=== PATIENT | female | born 1970 | race Caucasian/White ===

== ENCOUNTER 2020-11-06 15:46 | Inpatient (IN) | payer OTHER ==
[2020-11-06 20:32] VITALS: BMI 22.8
[2020-11-06] MEDS ORDERED: guaiFENesin 200 MG/10 ML 10 ML UNIT-DOSE CUPS PO PRN (22:23)
[2020-11-06] MEDS ORDERED: P-EPHED 60MG/TRIPROLIDI 2.5MG TABLET PO PRN (22:23)
[2020-11-06] MEDS ORDERED: ACETAMINOPHEN 325 MG TABLET (FP) PO PRN (22:23)
[2020-11-06] MEDS ORDERED: MAGNESIUM HYDROX 2400MG/30ML ORAL SUSPENSION 30 ML CUP PO PRN (22:23)
[2020-11-06] MEDS ORDERED: MAGNESIUM CITRATE 300 ML BOTTLE PO PRN (22:23)
[2020-11-06] MEDS ORDERED: LOPERAMIDE HCL 2 MG CAPSULE PO PRN (22:23)
[2020-11-06] MEDS ORDERED: NICOTINE 10 MG CARTRIDGE (INHALER) IH PRN (22:23)
[2020-11-06] MEDS ORDERED: MAG HYDROX/AL HYDROX/SIMETH 30 ML UNIT-DOSE CUP PO PRN (22:23)
[2020-11-06] MEDS ORDERED: hydrOXYzine PAMOATE 25 MG CAPSULE (FP) PO PRN (22:23)
[2020-11-07] MEDS ORDERED: TUBERCULIN PPD 5 TU/0.1ML VIAL ID ONE ×2 (01:48→02:10)
[2020-11-07] MEDS: IBUPROFEN 400 MG TABLET (FP) PO PRN ×2 (02:03→10:17)
[2020-11-07] MEDS: MELATONIN 5 MG TABLETS PO SCH ×2 (02:25→22:25)
[2020-11-07] MEDS: metFORMIN HCL 500 MG TABLET (FP) PO SCH ×2 (06:24→16:57)
[2020-11-07] MEDS ORDERED: cloNIDine HCL 0.1 MG TABLET PO PRN (06:56)
[2020-11-07] MEDS: hydrOXYzine PAMOATE 25 MG CAPSULE (FP) PO PRN (07:08)
[2020-11-07] MEDS: DIVALPROEX SODIUM 500 MG TABLET E.C. PO SCH ×2 (10:13→22:25)
[2020-11-07] MEDS: ASPIRIN 81 MG CHEWABLE TABLETS PO SCH (10:13)
[2020-11-07] MEDS: PRENATAL VITAMINS W/ FOLIC ACID TABLET (FP) PO SCH (10:13)
[2020-11-07] MEDS: NICOTINE 21 MG/24 HOURS TOPICAL PATCH TD SCH (10:18)
[2020-11-07 10:56] LABS: HEMATOCRIT 35.5 % (32.4-45.2); MCH 29.2 pg (25.7-33.7); MCHC 33.7 g/dl (32.0-36.0); MEAN CELL VOLUME 86.5 fl (80-96); MEAN PLT VOLUME 8.6 fl (7.5-11.1); PLATELET COUNT 286 10^3/uL (134-434); RDW 13.6 % (11.6-15.6); WHITE BLOOD COUNT 25.8 K/mm3 (4.0-10.0)
[2020-11-07 11:05] LABS: CALCIUM 9.6 mg/dL (8.5-10.1)
[2020-11-07 11:06] LABS: ALBUMIN 3.5 g/dl (3.4-5.0); BLOOD UREA NITROGEN 13.1 mg/dL (7-18)
[2020-11-07 11:09] LABS: CREATININE 0.6 mg/dL (0.55-1.3)
[2020-11-07 11:11] LABS: BILIRUBIN,TOTAL 0.5 mg/dL (0.2-1); TOT PROT 6.8 g/dl (6.4-8.2)
[2020-11-07 11:30] LABS: SYPHILIS W/ RPR CONF NON-REACTIVE (NONREACTIVE)
[2020-11-07 17:32] LABS: URINE APPEARANCE CLOUDY; URINE BILIRUBIN NEGATIVE (NEGATIVE); URINE COLOR YELLOW; URINE GLUCOSE (UA) NEGATIVE (NEGATIVE); URINE KETONE NEGATIVE (NEGATIVE); URINE LEUK ESTERASE NEGATIVE (NEGATIVE); URINE NITRITE NEGATIVE (NEGATIVE); URINE PROTEIN NEGATIVE (NEGATIVE); URINE UROBILINOGEN 0.2 mg/dL (0.2-1.0)
[2020-11-07] MEDS: ALBUTEROL SO4 HFA INHALER IH PRN (19:53)
[2020-11-07] MEDS ORDERED: PT OWN MED DRAWER 7, Y5N ONE (20:53)
[2020-11-07] MEDS ORDERED: ALBUTEROL SO4 0.083% IH SOL 2.5 MG/3 ML VIAL.NEB. NEB ONE (21:06)
[2020-11-07] MEDS ORDERED: ALBUTEROL SO4 2.5/IPRATROPIUM 0.5 INH SOL 3 ML VIAL.NEB. NEB ONE (21:26)
[2020-11-07] MEDS: ATORVASTATIN CA 40 MG TABLET (FP) PO SCH (22:25)
[2020-11-07] MEDS: THIAMINE HCL 100 MG TABLET (FP) PO SCH (22:25)
[2020-11-07] MEDS: levETIRAcetam 500 MG TABLET (FP) PO SCH (22:25)
[2020-11-08] MEDS: IBUPROFEN 400 MG TABLET (FP) PO PRN ×2 (02:36→10:51)
[2020-11-08] MEDS: hydrOXYzine PAMOATE 25 MG CAPSULE (FP) PO PRN ×2 (06:37→16:56)
[2020-11-08] MEDS: metFORMIN HCL 500 MG TABLET (FP) PO SCH ×2 (06:38→16:55)
[2020-11-08] MEDS: ALBUTEROL SO4 HFA INHALER IH PRN ×2 (09:36→21:23)
[2020-11-08] MEDS ORDERED: VENLAFAXINE HCL 150 MG E.R. CAPSULE PO SCH (10:00)
[2020-11-08] MEDS: PRENATAL VITAMINS W/ FOLIC ACID TABLET (FP) PO SCH (10:48)
[2020-11-08] MEDS: DIVALPROEX SODIUM 500 MG TABLET E.C. PO SCH ×2 (10:48→21:22)
[2020-11-08] MEDS: NICOTINE 21 MG/24 HOURS TOPICAL PATCH TD SCH (10:48)
[2020-11-08] MEDS: ASPIRIN 81 MG CHEWABLE TABLETS PO SCH (10:48)
[2020-11-08] MEDS ORDERED: MODERNA COVID-19 VACC,MRNA/PF 100 MCG/0.5 ML IM ONE (11:00)
[2020-11-08] MEDS ORDERED: levETIRAcetam 500 MG TABLET (FP) PO ONE (11:15)
[2020-11-08] MEDS: TIOTROPIUM BROMIDE 2.5 MCG (SPIRIVA) RESPIMAT INHALER IH SCH (12:14)
[2020-11-08] MEDS: levETIRAcetam 500 MG TABLET (FP) PO SCH (21:21)
[2020-11-08] MEDS: ATORVASTATIN CA 40 MG TABLET (FP) PO SCH (21:21)
[2020-11-08] MEDS: QUEtiapine FUMARATE 100 MG TABLET (FP) PO SCH (21:21)
[2020-11-08] MEDS: THIAMINE HCL 100 MG TABLET (FP) PO SCH (21:21)
[2020-11-08] MEDS: traZODone HCL 100 MG TABLET (FP) PO SCH (21:22)
[2020-11-09] MEDS: metFORMIN HCL 500 MG TABLET (FP) PO SCH ×2 (06:50→16:40)
[2020-11-09] MEDS: ALBUTEROL SO4 HFA INHALER IH PRN ×4 (06:50→21:13)
[2020-11-09] MEDS: hydrOXYzine PAMOATE 25 MG CAPSULE (FP) PO PRN ×3 (06:53→18:06)
[2020-11-09] MEDS: IBUPROFEN 400 MG TABLET (FP) PO PRN (06:53)
[2020-11-09] MEDS: levETIRAcetam 500 MG TABLET (FP) PO SCH ×2 (10:57→21:15)
[2020-11-09] MEDS: DIVALPROEX SODIUM 500 MG TABLET E.C. PO SCH ×2 (10:57→21:15)
[2020-11-09] MEDS: ASPIRIN 81 MG CHEWABLE TABLETS PO SCH (10:57)
[2020-11-09] MEDS: PRENATAL VITAMINS W/ FOLIC ACID TABLET (FP) PO SCH (10:57)
[2020-11-09] MEDS: NICOTINE 21 MG/24 HOURS TOPICAL PATCH TD SCH (10:58)
[2020-11-09] MEDS: TIOTROPIUM BROMIDE 2.5 MCG (SPIRIVA) RESPIMAT INHALER IH SCH (10:58)
[2020-11-09] MEDS: traZODone HCL 100 MG TABLET (FP) PO SCH (21:15)
[2020-11-09] MEDS: ATORVASTATIN CA 40 MG TABLET (FP) PO SCH (21:16)
[2020-11-09] MEDS: THIAMINE HCL 100 MG TABLET (FP) PO SCH (21:16)
[2020-11-09] MEDS: QUEtiapine FUMARATE 100 MG TABLET (FP) PO SCH (21:16)
[2020-11-10] MEDS: hydrOXYzine PAMOATE 25 MG CAPSULE (FP) PO PRN ×3 (02:05→19:19)
[2020-11-10] MEDS: metFORMIN HCL 500 MG TABLET (FP) PO SCH ×2 (06:34→16:40)
[2020-11-10 07:17] VITALS: TEMP 97.3
[2020-11-10] MEDS: levETIRAcetam 500 MG TABLET (FP) PO SCH ×2 (10:37→23:53)
[2020-11-10] MEDS: ASPIRIN 81 MG CHEWABLE TABLETS PO SCH (10:37)
[2020-11-10] MEDS: DIVALPROEX SODIUM 500 MG TABLET E.C. PO SCH ×2 (10:37→23:53)
[2020-11-10] MEDS: PRENATAL VITAMINS W/ FOLIC ACID TABLET (FP) PO SCH (10:37)
[2020-11-10] MEDS: NICOTINE 21 MG/24 HOURS TOPICAL PATCH TD SCH (10:38)
[2020-11-10] MEDS: TIOTROPIUM BROMIDE 2.5 MCG (SPIRIVA) RESPIMAT INHALER IH SCH (10:38)
[2020-11-10] MEDS: ALBUTEROL SO4 HFA INHALER IH PRN ×2 (10:39→16:31)
[2020-11-10 18:18] VITALS: BP 141/86; PULSE 93
[2020-11-10] MEDS: QUEtiapine FUMARATE 100 MG TABLET (FP) PO SCH (23:53)
[2020-11-10] MEDS: traZODone HCL 100 MG TABLET (FP) PO SCH (23:53)
[2020-11-10] MEDS: ATORVASTATIN CA 40 MG TABLET (FP) PO SCH (23:53)
[2020-11-10] MEDS: THIAMINE HCL 100 MG TABLET (FP) PO SCH (23:54)
[2020-11-11] MEDS: metFORMIN HCL 500 MG TABLET (FP) PO SCH (07:24)
== END 2020-11-11 07:15 | disposition short-term general hospital (02) | DRG 772 ==
LOC: YASAS 15:46 → Y5N 23:38
PROVIDERS: ADMIT Allergy & Immunology; ATTEND Allergy & Immunology
PROC: HZ42ZZZ Group Counseling for Substance Abuse Treatment, Cognitive-Behavioral (ICD-10-PCS; principal; 2020-11-06)
DX: F10.20 Alcohol dependence, uncomplicated (principal); F14.20 Cocaine dependence, uncomplicated; F12.20 Cannabis dependence, uncomplicated; F17.210 Nicotine dependence, cigarettes, uncomplicated; F25.9 Schizoaffective disorder, unspecified; J44.1 Chronic obstructive pulmonary disease with (acute) exacerbation; E78.5 Hyperlipidemia, unspecified; E11.9 Type 2 diabetes mellitus without complications; G40.909 Epilepsy, unspecified, not intractable, without status epilepticus; H54.62 Unqualified visual loss, left eye, normal vision right eye; M54.5 Low back pain; G89.29 Other chronic pain; R06.02 Shortness of breath; Z79.84 Long term (current) use of oral hypoglycemic drugs; Z87.39 Personal history of other diseases of the musculoskeletal system and connective tissue; Z56.0 Unemployment, unspecified
CPT/HCPCS: 0011A; 36415; 80053; 81003; 82962; 85027; 86780; 86803; 91301; 93005; 93010; 94640; C9803; J0735; U0003; U0005

== ENCOUNTER 2020-11-10 20:03 | Inpatient (IN) | payer OTHER ==
[2020-11-10] MEDS ORDERED: ALBUTEROL SO4 2.5/IPRATROPIUM 0.5 INH SOL 3 ML VIAL.NEB. NEB SCH (21:00)
[2020-11-10] MEDS ORDERED: PIPERACILLIN/TAZOB 3.375 GM 3.375 GM in DEXTROSE 5%-WATER - 50 ML IVPB ONE (21:36)
[2020-11-10] MEDS ORDERED: PIPERACILLIN/TAZOB 3.375 GM 3.375 GM/50 ML BAG IVPB ONE (21:37)
[2020-11-10 21:57] LABS: HEMATOCRIT 35.4 % (32.4-45.2); MCH 29.9 pg (25.7-33.7); MCHC 33.9 g/dl (32.0-36.0); MEAN CELL VOLUME 88.1 fl (80-96); PLATELET COUNT 348 10^3/uL (134-434); RBC 4.02 M/mm3 (3.60-5.2); RDW 13.7 % (11.6-15.6); WHITE BLOOD COUNT 10.6 K/mm3 (4.0-10.0)
[2020-11-10 22:02] LABS: URINE APPEARANCE Error; URINE BILIRUBIN NEGATIVE (NEGATIVE); URINE COLOR YELLOW; URINE GLUCOSE (UA) NEGATIVE (NEGATIVE); URINE KETONE NEGATIVE (NEGATIVE); URINE LEUK ESTERASE NEGATIVE (NEGATIVE); URINE NITRITE NEGATIVE (NEGATIVE); URINE PROTEIN NEGATIVE (NEGATIVE); URINE UROBILINOGEN 0.2 mg/dL (0.2-1.0)
[2020-11-10 22:59] LABS: CHLORIDE 104 mmol/L (98-107); SODIUM 140 mmol/L (136-145)
[2020-11-10 23:02] LABS: ALBUMIN 3.4 g/dl (3.4-5.0); ANION GAP 5 MMOL/L (8-16); BLOOD UREA NITROGEN 9.1 mg/dL (7-18); CALCIUM 9.6 mg/dL (8.5-10.1); CO2 31 mmol/L (21-32); MAGNESIUM 1.7 mg/dL (1.8-2.4)
[2020-11-10 23:03] LABS: GLUCOSE,RANDOM 100 mg/dL (74-106)
[2020-11-10 23:05] LABS: CREATININE 0.5 mg/dL (0.55-1.3); SGOT/AST 16 U/L (15-37); SGPT/ALT 30 U/L (13-61)
[2020-11-10 23:07] LABS: BILIRUBIN,TOTAL < 0.1 mg/dL (0.2-1); TOT PROT 6.9 g/dl (6.4-8.2)
[2020-11-10 23:08] LABS: ALK PHOS 103 U/L (45-117)
[2020-11-10] MEDS ORDERED: MAGNESIUM SULF 50% (8.12 MEQ/2 ML-1 GM VIAL) IVPB ONE (23:41)
[2020-11-11] MEDS ORDERED: MAGNESIUM SULFATE IN WATER 2 GM/50 ML IVPB IVPB ONE (00:50)
[2020-11-11] MEDS ORDERED: LORazepam 1 MG TABLET PO PRN (05:19)
[2020-11-11] MEDS ORDERED: MAGNESIUM SULF 50% (8.12 MEQ/2 ML-1 GM VIAL) IVPB ONE (05:43)
[2020-11-11] MEDS ORDERED: LORazepam 1 MG TABLET ONE ×2 (06:19→12:06)
[2020-11-11 07:04] LABS: HEMATOCRIT 34.9 % (32.4-45.2); HEMOGLOBIN 11.8 GM/dL (10.7-15.3); MCH 29.9 pg (25.7-33.7); MCHC 33.7 g/dl (32.0-36.0); MEAN CELL VOLUME 88.6 fl (80-96); MEAN PLT VOLUME 7.7 fl (7.5-11.1); PLATELET COUNT 347 10^3/uL (134-434); RBC 3.94 M/mm3 (3.60-5.2); RDW 13.5 % (11.6-15.6); WHITE BLOOD COUNT 10.8 K/mm3 (4.0-10.0)
[2020-11-11 07:38] LABS: ALBUMIN 3.3 g/dl (3.4-5.0); BLOOD UREA NITROGEN 9.7 mg/dL (7-18); CALCIUM 9.5 mg/dL (8.5-10.1); MAGNESIUM 2.2 mg/dL (1.8-2.4)
[2020-11-11 07:41] LABS: CREATININE 0.6 mg/dL (0.55-1.3)
[2020-11-11 07:42] LABS: PHOSPHOROUS 4.8 mg/dL (2.5-4.9)
[2020-11-11 07:46] LABS: BILIRUBIN,TOTAL 0.1 mg/dL (0.2-1); TOT PROT 6.7 g/dl (6.4-8.2)
[2020-11-11] MEDS ORDERED: MAGNESIUM SULF 50% (8.12 MEQ/2 ML-1 GM VIAL) ONE (08:23)
[2020-11-11] MEDS ORDERED: PT OWN MED DRAWER 7, Y5N ONE ×2 (08:24→21:42)
[2020-11-11] MEDS: AMPICILLIN NA/SULBACTAM NA 1.5 GM in SODIUM CHLORIDE 100 ML IVPB SCH ×4 (08:36→21:32)
[2020-11-11] MEDS: LORazepam 1 MG TABLET PO SCH ×4 (11:21→22:22)
[2020-11-11] MEDS: INSULIN SLIDING SCALE (NOVOLOG) 1 VIAL SQ SCH ×4 (11:21→21:41)
[2020-11-11] MEDS ORDERED: DIVALPROEX SODIUM 500 MG TABLET E.C. ONE (11:50)
[2020-11-11] MEDS ORDERED: levETIRAcetam 500 MG TABLET (FP) PO ONE (11:50)
[2020-11-11] MEDS ORDERED: THIAMINE HCL 100 MG TABLET (FP) ONE (11:50)
[2020-11-11] MEDS ORDERED: ENOXAPARIN NA (PORCINE) 40 MG/0.4 ML DISP.SYRIN SQ ONE (11:51)
[2020-11-11] MEDS ORDERED: methylPREDNISolone NA SUCC 40 MG/1 ML VIAL ONE (11:51)
[2020-11-11] MEDS: levETIRAcetam 500 MG TABLET (FP) PO SCH (12:01)
[2020-11-11] MEDS: DIVALPROEX SODIUM 500 MG TABLET E.C. PO SCH ×2 (12:01→21:31)
[2020-11-11] MEDS: THIAMINE HCL 100 MG TABLET (FP) PO SCH (12:02)
[2020-11-11] MEDS: methylPREDNISolone NA SUCC 40 MG/1 ML VIAL IVPUSH SCH (12:02)
[2020-11-11] MEDS: ENOXAPARIN NA (PORCINE) 40 MG/0.4 ML DISP.SYRIN SQ SCH (12:02)
[2020-11-11] MEDS: BUDESONIDE/FORMETEROL FUMARATE 80/4.5 mcg INHALER IH SCH ×3 (12:02→22:42)
[2020-11-11] MEDS: SODIUM CHLORIDE 1,000 ML IV SCH (12:08)
[2020-11-11] MEDS ORDERED: AMPICILLIN NA/SULBACTAM NA 1.5 GM VIAL ONE ×2 (15:48→21:28)
[2020-11-11] MEDS ORDERED: SODIUM CHLORIDE 100 ML IVPB ONE ×2 (15:48→21:29)
[2020-11-11 19:50] VITALS: BMI 23.9
[2020-11-11] MEDS ORDERED: levETIRAcetam 250 MG TABLET PO SCH (22:00)
[2020-11-11] MEDS ORDERED: ATORVASTATIN CA 40 MG TABLET (FP) PO SCH (22:00)
[2020-11-12] MEDS ORDERED: MELATONIN 5 MG TABLETS PO ONE (00:56)
[2020-11-12] MEDS ORDERED: AMPICILLIN NA/SULBACTAM NA 1.5 GM VIAL ONE ×3 (03:10→14:25)
[2020-11-12] MEDS ORDERED: SODIUM CHLORIDE 100 ML IVPB ONE ×3 (03:10→14:26)
[2020-11-12] MEDS: AMPICILLIN NA/SULBACTAM NA 1.5 GM in SODIUM CHLORIDE 100 ML IVPB SCH ×3 (03:13→14:33)
[2020-11-12] MEDS: LORazepam 1 MG TABLET PO SCH ×3 (05:14→16:38)
[2020-11-12] MEDS: INSULIN SLIDING SCALE (NOVOLOG) 1 VIAL SQ SCH ×3 (06:11→16:57)
[2020-11-12] MEDS: ENOXAPARIN NA (PORCINE) 40 MG/0.4 ML DISP.SYRIN SQ SCH (09:00)
[2020-11-12] MEDS: levETIRAcetam 500 MG TABLET (FP) PO SCH (09:00)
[2020-11-12] MEDS: DIVALPROEX SODIUM 500 MG TABLET E.C. PO SCH (09:00)
[2020-11-12] MEDS: THIAMINE HCL 100 MG TABLET (FP) PO SCH (09:00)
[2020-11-12] MEDS ORDERED: TIOTROPIUM BROMIDE 2.5 MCG (SPIRIVA) RESPIMAT INHALER IH SCH (10:00)
[2020-11-12] MEDS: BUDESONIDE/FORMETEROL FUMARATE 80/4.5 mcg INHALER IH SCH (10:04)
[2020-11-12] MEDS: methylPREDNISolone NA SUCC 40 MG/1 ML VIAL IVPUSH SCH (10:14)
[2020-11-12 10:39] VITALS: BP 100/52; PULSE 70; TEMP 98
[2020-11-12 13:19] LABS: HIV INTERPRETATION NEGATIVE (NEGATIVE)
[2020-11-12] MEDS: SODIUM CHLORIDE 1,000 ML IV SCH (14:48)
[2020-11-12 16:10] LABS: BASO % 0.2 % (0-2.0); EOS % 0.2 % (0-4.5); HEMATOCRIT 37.6 % (32.4-45.2); HEMOGLOBIN 12.6 GM/dL (10.7-15.3); LYMPH % 13.7 % (8-40); MCH 29.3 pg (25.7-33.7); MCHC 33.7 g/dl (32.0-36.0); MONO % 1.7 % (3.8-10.2); NEUT % 84.2 % (42.8-82.8); PLATELET COUNT 404 10^3/uL (134-434); RBC 4.32 M/mm3 (3.60-5.2); RDW 13.5 % (11.6-15.6); WHITE BLOOD COUNT 17.3 K/mm3 (4.0-10.0)
[2020-11-12 16:39] LABS: ALBUMIN 3.6 g/dl (3.4-5.0); CALCIUM 9.6 mg/dL (8.5-10.1)
[2020-11-12 16:41] LABS: BLOOD UREA NITROGEN 16.2 mg/dL (7-18)
[2020-11-12 16:44] LABS: CREATININE 0.9 mg/dL (0.55-1.3)
[2020-11-12 16:45] LABS: BILIRUBIN,TOTAL 0.1 mg/dL (0.2-1); TOT PROT 7.4 g/dl (6.4-8.2)
[2020-11-13] MEDS ORDERED: LORazepam 0.5 MG TABLET PO PRN
[2020-11-13] MEDS ORDERED: LORazepam 0.5 MG TABLET PO SCH (05:00)
[2020-11-14] MEDS ORDERED: LORazepam 0.5 MG TABLET PO ONE (05:00)
== END 2020-11-12 17:15 | disposition other institution (70) | DRG 140 ==
LOC: JER 20:03 → JERBED 11-11 01:21 → J5S 11-11 12:39
PROVIDERS: ADMIT Internal Medicine; ATTEND Internal Medicine
PROC: HZ2ZZZZ Detoxification Services for Substance Abuse Treatment (ICD-10-PCS; principal; 2020-11-11)
DX: J44.1 Chronic obstructive pulmonary disease with (acute) exacerbation (principal); J98.11 Atelectasis; I48.91 Unspecified atrial fibrillation; F19.10 Other psychoactive substance abuse, uncomplicated; J20.9 Acute bronchitis, unspecified; F17.210 Nicotine dependence, cigarettes, uncomplicated; F25.0 Schizoaffective disorder, bipolar type; G40.909 Epilepsy, unspecified, not intractable, without status epilepticus; K21.9 Gastro-esophageal reflux disease without esophagitis
CPT/HCPCS: 36415; 71260-TC; 80053; 80164; 80177; 81003; 82550; 82962; 83735; 84100; 84484; 85025; 85027; 86480; 87040; 87070; 87205; 87389; 87899; 93005; 93010; 99285-25; C9803; U0003; U0005

== ENCOUNTER 2020-11-12 17:22 | Inpatient (IN) | payer OTHER ==
[2020-11-12] MEDS ORDERED: ALBUTEROL SO4 HFA INHALER IH PRN (17:51)
[2020-11-12] MEDS ORDERED: MAGNESIUM CITRATE 300 ML BOTTLE PO PRN (18:12)
[2020-11-12] MEDS ORDERED: MAGNESIUM HYDROX 2400MG/30ML ORAL SUSPENSION 30 ML CUP PO PRN (18:12)
[2020-11-12] MEDS ORDERED: P-EPHED 60MG/TRIPROLIDI 2.5MG TABLET PO PRN (18:12)
[2020-11-12] MEDS ORDERED: ACETAMINOPHEN 325 MG TABLET (FP) PO PRN (18:12)
[2020-11-12] MEDS ORDERED: LOPERAMIDE HCL 2 MG CAPSULE PO PRN (18:12)
[2020-11-12] MEDS ORDERED: guaiFENesin 200 MG/10 ML 10 ML UNIT-DOSE CUPS PO PRN (18:12)
[2020-11-12] MEDS ORDERED: MENTHOL/PHENOL 1 EACH UD MM PRN (18:12)
[2020-11-12 18:36] VITALS: BMI 25.0
[2020-11-12] MEDS: ASPIRIN COATED 81 MG TABLET.EC PO SCH (19:45)
[2020-11-12] MEDS: hydrOXYzine PAMOATE 25 MG CAPSULE (FP) PO PRN (21:44)
[2020-11-12] MEDS: ATORVASTATIN CA 40 MG TABLET (FP) PO SCH (21:44)
[2020-11-12] MEDS: BUDESONIDE/FORMETEROL FUMARATE 80/4.5 mcg INHALER IH SCH (21:45)
[2020-11-12] MEDS ORDERED: DIVALPROEX SODIUM 500 MG TABLET E.C. PO ONE (22:00)
[2020-11-12] MEDS ORDERED: MELATONIN 5 MG TABLETS PO SCH (22:00)
[2020-11-12] MEDS ORDERED: DIVALPROEX SODIUM 500 MG TABLET E.C. PO SCH (22:00)
[2020-11-12] MEDS: BRIMONIDINE TARTRATE 0.15% OPHTHALMIC 5 ML BOTTLE OS SCH (22:37)
[2020-11-12] MEDS: LATANOPROST 0.005% OPHTH SOLN 2.5ML BOTTLE OS SCH (22:38)
[2020-11-12] MEDS: levETIRAcetam 250 MG TABLET PO SCH (22:38)
[2020-11-12] MEDS: DORZOLAMIDE 2% HCL OPHTHALMIC SOLUTION 10 ML BOTTLE OS SCH (22:38)
[2020-11-13] MEDS: BRIMONIDINE TARTRATE 0.15% OPHTHALMIC 5 ML BOTTLE OS SCH ×3 (06:38→21:05)
[2020-11-13] MEDS: DORZOLAMIDE 2% HCL OPHTHALMIC SOLUTION 10 ML BOTTLE OS SCH ×3 (06:38→21:04)
[2020-11-13] MEDS ORDERED: PT OWN MED DRAWER 7, Y5N ONE (06:46)
[2020-11-13] MEDS: THIAMINE HCL 100 MG TABLET (FP) PO SCH (10:14)
[2020-11-13] MEDS: hydrOXYzine PAMOATE 25 MG CAPSULE (FP) PO PRN (10:14)
[2020-11-13] MEDS: ASPIRIN COATED 81 MG TABLET.EC PO SCH (10:14)
[2020-11-13] MEDS: PRENATAL VITAMINS W/ FOLIC ACID TABLET (FP) PO SCH (10:15)
[2020-11-13] MEDS: levETIRAcetam 500 MG TABLET (FP) PO SCH (10:15)
[2020-11-13] MEDS: NICOTINE 21 MG/24 HOURS TOPICAL PATCH TD SCH (10:15)
[2020-11-13] MEDS: TIOTROPIUM BROMIDE 2.5 MCG (SPIRIVA) RESPIMAT INHALER IH SCH (10:16)
[2020-11-13] MEDS: predniSONE 10 MG TABLET (UD) PO SCH (10:18)
[2020-11-13] MEDS: BUDESONIDE/FORMETEROL FUMARATE 80/4.5 mcg INHALER IH SCH ×2 (10:18→21:03)
[2020-11-13] MEDS: hydrOXYzine PAMOATE 50 MG CAPSULE (FP) PO PRN ×3 (14:29→23:55)
[2020-11-13] MEDS: IBUPROFEN 400 MG TABLET (FP) PO PRN (18:37)
[2020-11-13] MEDS: LATANOPROST 0.005% OPHTH SOLN 2.5ML BOTTLE OS SCH (21:05)
[2020-11-13] MEDS: ATORVASTATIN CA 40 MG TABLET (FP) PO SCH (21:05)
[2020-11-13] MEDS: QUEtiapine FUMARATE 100 MG TABLET (FP) PO SCH (21:06)
[2020-11-13] MEDS: traZODone HCL 100 MG TABLET (FP) PO SCH (21:06)
[2020-11-13] MEDS: levETIRAcetam 250 MG TABLET PO SCH (22:52)
[2020-11-14] MEDS: BRIMONIDINE TARTRATE 0.15% OPHTHALMIC 5 ML BOTTLE OS SCH ×3 (06:52→21:29)
[2020-11-14] MEDS: DORZOLAMIDE 2% HCL OPHTHALMIC SOLUTION 10 ML BOTTLE OS SCH ×3 (06:53→21:32)
[2020-11-14] MEDS: hydrOXYzine PAMOATE 50 MG CAPSULE (FP) PO PRN ×3 (06:58→21:33)
[2020-11-14] MEDS ORDERED: PT OWN MED DRAWER 7, Y5N ONE ×2 (06:59→14:56)
[2020-11-14] MEDS: THIAMINE HCL 100 MG TABLET (FP) PO SCH (10:40)
[2020-11-14] MEDS: levETIRAcetam 500 MG TABLET (FP) PO SCH (10:40)
[2020-11-14] MEDS: BUDESONIDE/FORMETEROL FUMARATE 80/4.5 mcg INHALER IH SCH ×2 (10:41→21:29)
[2020-11-14] MEDS: TIOTROPIUM BROMIDE 2.5 MCG (SPIRIVA) RESPIMAT INHALER IH SCH (10:41)
[2020-11-14] MEDS: ASPIRIN COATED 81 MG TABLET.EC PO SCH (10:42)
[2020-11-14] MEDS: predniSONE 10 MG TABLET (UD) PO SCH (10:43)
[2020-11-14] MEDS: PRENATAL VITAMINS W/ FOLIC ACID TABLET (FP) PO SCH (10:44)
[2020-11-14] MEDS: NICOTINE 21 MG/24 HOURS TOPICAL PATCH TD SCH (10:46)
[2020-11-14] MEDS: DIVALPROEX SODIUM 500 MG TABLET E.C. PO SCH ×2 (14:20→21:28)
[2020-11-14] MEDS: metFORMIN HCL 500 MG TABLET (FP) PO SCH (16:02)
[2020-11-14] MEDS: QUEtiapine FUMARATE 100 MG TABLET (FP) PO SCH (21:27)
[2020-11-14] MEDS: ATORVASTATIN CA 40 MG TABLET (FP) PO SCH (21:28)
[2020-11-14] MEDS: traZODone HCL 100 MG TABLET (FP) PO SCH (21:28)
[2020-11-14] MEDS: LATANOPROST 0.005% OPHTH SOLN 2.5ML BOTTLE OS SCH (21:29)
[2020-11-14] MEDS: levETIRAcetam 250 MG TABLET PO SCH (21:30)
[2020-11-14] MEDS: IBUPROFEN 400 MG TABLET (FP) PO PRN (21:34)
[2020-11-15] MEDS: BRIMONIDINE TARTRATE 0.15% OPHTHALMIC 5 ML BOTTLE OS SCH ×3 (07:06→21:53)
[2020-11-15] MEDS: DORZOLAMIDE 2% HCL OPHTHALMIC SOLUTION 10 ML BOTTLE OS SCH ×3 (07:06→21:52)
[2020-11-15] MEDS: metFORMIN HCL 500 MG TABLET (FP) PO SCH ×2 (07:06→17:02)
[2020-11-15] MEDS: hydrOXYzine PAMOATE 50 MG CAPSULE (FP) PO PRN ×2 (07:06→13:05)
[2020-11-15] MEDS: PRENATAL VITAMINS W/ FOLIC ACID TABLET (FP) PO SCH (09:51)
[2020-11-15] MEDS: NICOTINE 21 MG/24 HOURS TOPICAL PATCH TD SCH (09:52)
[2020-11-15] MEDS: DIVALPROEX SODIUM 500 MG TABLET E.C. PO SCH ×2 (09:52→21:53)
[2020-11-15] MEDS: levETIRAcetam 500 MG TABLET (FP) PO SCH (09:52)
[2020-11-15] MEDS: predniSONE 10 MG TABLET (UD) PO SCH (09:53)
[2020-11-15] MEDS: THIAMINE HCL 100 MG TABLET (FP) PO SCH (09:53)
[2020-11-15] MEDS: BUDESONIDE/FORMETEROL FUMARATE 80/4.5 mcg INHALER IH SCH ×2 (09:53→21:52)
[2020-11-15] MEDS: ASPIRIN COATED 81 MG TABLET.EC PO SCH (09:53)
[2020-11-15] MEDS: TIOTROPIUM BROMIDE 2.5 MCG (SPIRIVA) RESPIMAT INHALER IH SCH (09:54)
[2020-11-15] MEDS: MAG HYDROX/AL HYDROX/SIMETH 30 ML UNIT-DOSE CUP PO PRN ×2 (09:56→18:06)
[2020-11-15] MEDS ORDERED: ALBUTEROL SO4 0.083% IH SOL 2.5 MG/3 ML VIAL.NEB. NEB PRN (11:41)
[2020-11-15] MEDS ORDERED: PT OWN MED DRAWER 7, Y5N ONE ×2 (12:50→19:21)
[2020-11-15] MEDS: LATANOPROST 0.005% OPHTH SOLN 2.5ML BOTTLE OS SCH (21:52)
[2020-11-15] MEDS: QUEtiapine FUMARATE 100 MG TABLET (FP) PO SCH (21:53)
[2020-11-15] MEDS: levETIRAcetam 250 MG TABLET PO SCH (21:53)
[2020-11-15] MEDS: ATORVASTATIN CA 40 MG TABLET (FP) PO SCH (21:53)
[2020-11-15] MEDS: traZODone HCL 50 MG TABLET (FP) PO SCH (21:54)
[2020-11-16] MEDS ORDERED: PT OWN MED DRAWER 7, Y5N ONE (02:58)
[2020-11-16] MEDS: DORZOLAMIDE 2% HCL OPHTHALMIC SOLUTION 10 ML BOTTLE OS SCH ×2 (06:42→14:07)
[2020-11-16] MEDS: metFORMIN HCL 500 MG TABLET (FP) PO SCH ×2 (06:42→18:16)
[2020-11-16] MEDS: BRIMONIDINE TARTRATE 0.15% OPHTHALMIC 5 ML BOTTLE OS SCH ×2 (06:43→14:08)
[2020-11-16] MEDS: PRENATAL VITAMINS W/ FOLIC ACID TABLET (FP) PO SCH (10:11)
[2020-11-16] MEDS: DIVALPROEX SODIUM 500 MG TABLET E.C. PO SCH (10:11)
[2020-11-16] MEDS: BUDESONIDE/FORMETEROL FUMARATE 80/4.5 mcg INHALER IH SCH (10:11)
[2020-11-16] MEDS: TIOTROPIUM BROMIDE 2.5 MCG (SPIRIVA) RESPIMAT INHALER IH SCH (10:11)
[2020-11-16] MEDS: levETIRAcetam 500 MG TABLET (FP) PO SCH (10:12)
[2020-11-16] MEDS: ASPIRIN COATED 81 MG TABLET.EC PO SCH (10:12)
[2020-11-16] MEDS: NICOTINE 21 MG/24 HOURS TOPICAL PATCH TD SCH (10:12)
[2020-11-16] MEDS: THIAMINE HCL 100 MG TABLET (FP) PO SCH (10:12)
[2020-11-17] MEDS: traZODone HCL 50 MG TABLET (FP) PO SCH ×2 (00:17→21:25)
[2020-11-17] MEDS: DIVALPROEX SODIUM 500 MG TABLET E.C. PO SCH ×3 (00:17→21:26)
[2020-11-17] MEDS: BRIMONIDINE TARTRATE 0.15% OPHTHALMIC 5 ML BOTTLE OS SCH ×4 (00:17→21:27)
[2020-11-17] MEDS: ATORVASTATIN CA 40 MG TABLET (FP) PO SCH ×2 (00:18→21:26)
[2020-11-17] MEDS: BUDESONIDE/FORMETEROL FUMARATE 80/4.5 mcg INHALER IH SCH ×3 (00:18→21:26)
[2020-11-17] MEDS: DORZOLAMIDE 2% HCL OPHTHALMIC SOLUTION 10 ML BOTTLE OS SCH ×4 (00:18→21:27)
[2020-11-17] MEDS: levETIRAcetam 250 MG TABLET PO SCH ×2 (00:18→21:26)
[2020-11-17] MEDS: QUEtiapine FUMARATE 100 MG TABLET (FP) PO SCH ×2 (00:18→21:26)
[2020-11-17] MEDS: LATANOPROST 0.005% OPHTH SOLN 2.5ML BOTTLE OS SCH ×2 (00:19→21:31)
[2020-11-17] MEDS ORDERED: QUEtiapine FUMARATE 100 MG TABLET (FP) PO ONE (01:27)
[2020-11-17] MEDS ORDERED: traZODone HCL 50 MG TABLET (FP) PO ONE (01:27)
[2020-11-17] MEDS: metFORMIN HCL 500 MG TABLET (FP) PO SCH ×2 (06:54→17:02)
[2020-11-17] MEDS ORDERED: INSULIN (NOVOLOG) ASPART 100 UNITS/ML 10ML VIAL ONE (06:57)
[2020-11-17] MEDS: THIAMINE HCL 100 MG TABLET (FP) PO SCH (09:40)
[2020-11-17] MEDS: PRENATAL VITAMINS W/ FOLIC ACID TABLET (FP) PO SCH (09:40)
[2020-11-17] MEDS: TIOTROPIUM BROMIDE 2.5 MCG (SPIRIVA) RESPIMAT INHALER IH SCH (09:41)
[2020-11-17] MEDS: levETIRAcetam 500 MG TABLET (FP) PO SCH (09:41)
[2020-11-17] MEDS: ASPIRIN COATED 81 MG TABLET.EC PO SCH (09:41)
[2020-11-17] MEDS: NICOTINE 21 MG/24 HOURS TOPICAL PATCH TD SCH (09:42)
[2020-11-17] MEDS: hydrOXYzine PAMOATE 50 MG CAPSULE (FP) PO PRN (21:29)
[2020-11-18] MEDS ORDERED: PT OWN MED DRAWER 7, Y5N ONE ×2 (01:06→13:15)
[2020-11-18] MEDS: metFORMIN HCL 500 MG TABLET (FP) PO SCH ×2 (06:45→16:49)
[2020-11-18] MEDS: DORZOLAMIDE 2% HCL OPHTHALMIC SOLUTION 10 ML BOTTLE OS SCH ×3 (06:45→21:03)
[2020-11-18] MEDS: BRIMONIDINE TARTRATE 0.15% OPHTHALMIC 5 ML BOTTLE OS SCH ×3 (06:46→21:03)
[2020-11-18] MEDS: ASPIRIN COATED 81 MG TABLET.EC PO SCH (10:11)
[2020-11-18] MEDS: THIAMINE HCL 100 MG TABLET (FP) PO SCH (10:11)
[2020-11-18] MEDS: levETIRAcetam 500 MG TABLET (FP) PO SCH (10:11)
[2020-11-18] MEDS: DIVALPROEX SODIUM 500 MG TABLET E.C. PO SCH ×2 (10:12→21:00)
[2020-11-18] MEDS: PRENATAL VITAMINS W/ FOLIC ACID TABLET (FP) PO SCH (10:12)
[2020-11-18] MEDS: NICOTINE 21 MG/24 HOURS TOPICAL PATCH TD SCH (10:13)
[2020-11-18] MEDS: TIOTROPIUM BROMIDE 2.5 MCG (SPIRIVA) RESPIMAT INHALER IH SCH (10:23)
[2020-11-18] MEDS: BUDESONIDE/FORMETEROL FUMARATE 80/4.5 mcg INHALER IH SCH ×2 (10:24→21:03)
[2020-11-18] MEDS: hydrOXYzine PAMOATE 50 MG CAPSULE (FP) PO PRN (16:49)
[2020-11-18] MEDS: QUEtiapine FUMARATE 100 MG TABLET (FP) PO SCH (21:00)
[2020-11-18] MEDS: levETIRAcetam 250 MG TABLET PO SCH (21:00)
[2020-11-18] MEDS: traZODone HCL 50 MG TABLET (FP) PO SCH (21:00)
[2020-11-18] MEDS: ATORVASTATIN CA 40 MG TABLET (FP) PO SCH (21:00)
[2020-11-18] MEDS: LATANOPROST 0.005% OPHTH SOLN 2.5ML BOTTLE OS SCH (21:03)
[2020-11-19] MEDS: metFORMIN HCL 500 MG TABLET (FP) PO SCH ×2 (06:57→16:29)
[2020-11-19] MEDS: BRIMONIDINE TARTRATE 0.15% OPHTHALMIC 5 ML BOTTLE OS SCH ×3 (06:58→21:44)
[2020-11-19] MEDS: DORZOLAMIDE 2% HCL OPHTHALMIC SOLUTION 10 ML BOTTLE OS SCH ×3 (07:00→21:44)
[2020-11-19] MEDS: PRENATAL VITAMINS W/ FOLIC ACID TABLET (FP) PO SCH (09:43)
[2020-11-19] MEDS: levETIRAcetam 500 MG TABLET (FP) PO SCH (09:43)
[2020-11-19] MEDS: THIAMINE HCL 100 MG TABLET (FP) PO SCH (09:44)
[2020-11-19] MEDS: ASPIRIN COATED 81 MG TABLET.EC PO SCH (09:44)
[2020-11-19] MEDS: DIVALPROEX SODIUM 500 MG TABLET E.C. PO SCH ×2 (09:44→21:42)
[2020-11-19] MEDS: NICOTINE 21 MG/24 HOURS TOPICAL PATCH TD SCH (09:44)
[2020-11-19] MEDS: BUDESONIDE/FORMETEROL FUMARATE 80/4.5 mcg INHALER IH SCH ×2 (09:44→21:44)
[2020-11-19] MEDS: TIOTROPIUM BROMIDE 2.5 MCG (SPIRIVA) RESPIMAT INHALER IH SCH (09:45)
[2020-11-19] MEDS ORDERED: ALBUTEROL SO4 0.083% IH SOL 2.5 MG/3 ML VIAL.NEB. NEB PRN (13:26)
[2020-11-19] MEDS: NAPROXEN 500 MG TABLET PO PRN ×2 (15:48→22:39)
[2020-11-19] MEDS ORDERED: PT OWN MED DRAWER 7, Y5N ONE (18:33)
[2020-11-19] MEDS: levETIRAcetam 250 MG TABLET PO SCH (21:41)
[2020-11-19] MEDS: ATORVASTATIN CA 40 MG TABLET (FP) PO SCH (21:42)
[2020-11-19] MEDS: traZODone HCL 50 MG TABLET (FP) PO SCH (21:42)
[2020-11-19] MEDS: QUEtiapine FUMARATE 100 MG TABLET (FP) PO SCH (21:42)
[2020-11-19] MEDS: LATANOPROST 0.005% OPHTH SOLN 2.5ML BOTTLE OS SCH (21:44)
[2020-11-19] MEDS: hydrOXYzine PAMOATE 50 MG CAPSULE (FP) PO PRN (21:44)
[2020-11-20] MEDS: metFORMIN HCL 500 MG TABLET (FP) PO SCH ×2 (06:01→16:17)
[2020-11-20] MEDS: DORZOLAMIDE 2% HCL OPHTHALMIC SOLUTION 10 ML BOTTLE OS SCH ×3 (06:02→21:05)
[2020-11-20] MEDS: BRIMONIDINE TARTRATE 0.15% OPHTHALMIC 5 ML BOTTLE OS SCH ×3 (06:02→21:05)
[2020-11-20] MEDS: THIAMINE HCL 100 MG TABLET (FP) PO SCH (10:02)
[2020-11-20] MEDS: DIVALPROEX SODIUM 500 MG TABLET E.C. PO SCH ×2 (10:02→21:04)
[2020-11-20] MEDS: levETIRAcetam 500 MG TABLET (FP) PO SCH (10:02)
[2020-11-20] MEDS: PRENATAL VITAMINS W/ FOLIC ACID TABLET (FP) PO SCH (10:02)
[2020-11-20] MEDS: BUDESONIDE/FORMETEROL FUMARATE 80/4.5 mcg INHALER IH SCH ×2 (10:03→21:05)
[2020-11-20] MEDS: ASPIRIN COATED 81 MG TABLET.EC PO SCH (10:03)
[2020-11-20] MEDS: NICOTINE 21 MG/24 HOURS TOPICAL PATCH TD SCH (10:03)
[2020-11-20] MEDS: TIOTROPIUM BROMIDE 2.5 MCG (SPIRIVA) RESPIMAT INHALER IH SCH (10:05)
[2020-11-20] MEDS ORDERED: PT OWN MED DRAWER 7, Y5N ONE (10:06)
[2020-11-20] MEDS: NAPROXEN 500 MG TABLET PO PRN (21:04)
[2020-11-20] MEDS: ATORVASTATIN CA 40 MG TABLET (FP) PO SCH (21:04)
[2020-11-20] MEDS: QUEtiapine FUMARATE 100 MG TABLET (FP) PO SCH (21:04)
[2020-11-20] MEDS: traZODone HCL 50 MG TABLET (FP) PO SCH (21:04)
[2020-11-20] MEDS: levETIRAcetam 250 MG TABLET PO SCH (21:05)
[2020-11-20] MEDS: LATANOPROST 0.005% OPHTH SOLN 2.5ML BOTTLE OS SCH (21:06)
[2020-11-21] MEDS: metFORMIN HCL 500 MG TABLET (FP) PO SCH ×2 (06:53→17:18)
[2020-11-21] MEDS: BRIMONIDINE TARTRATE 0.15% OPHTHALMIC 5 ML BOTTLE OS SCH ×3 (06:54→22:01)
[2020-11-21] MEDS: DORZOLAMIDE 2% HCL OPHTHALMIC SOLUTION 10 ML BOTTLE OS SCH ×3 (06:55→22:01)
[2020-11-21] MEDS: PRENATAL VITAMINS W/ FOLIC ACID TABLET (FP) PO SCH (09:17)
[2020-11-21] MEDS: DIVALPROEX SODIUM 500 MG TABLET E.C. PO SCH ×2 (09:17→22:02)
[2020-11-21] MEDS: levETIRAcetam 500 MG TABLET (FP) PO SCH (09:17)
[2020-11-21] MEDS: NICOTINE 21 MG/24 HOURS TOPICAL PATCH TD SCH (09:17)
[2020-11-21] MEDS: THIAMINE HCL 100 MG TABLET (FP) PO SCH (09:17)
[2020-11-21] MEDS: ASPIRIN COATED 81 MG TABLET.EC PO SCH (09:17)
[2020-11-21] MEDS: TIOTROPIUM BROMIDE 2.5 MCG (SPIRIVA) RESPIMAT INHALER IH SCH (09:18)
[2020-11-21] MEDS: BUDESONIDE/FORMETEROL FUMARATE 80/4.5 mcg INHALER IH SCH ×2 (09:18→22:03)
[2020-11-21] MEDS: NAPROXEN 500 MG TABLET PO PRN ×2 (09:20→22:04)
[2020-11-21] MEDS: hydrOXYzine PAMOATE 50 MG CAPSULE (FP) PO PRN (09:20)
[2020-11-21] MEDS ORDERED: PT OWN MED DRAWER 7, Y5N ONE (18:33)
[2020-11-21] MEDS: LATANOPROST 0.005% OPHTH SOLN 2.5ML BOTTLE OS SCH (22:02)
[2020-11-21] MEDS: QUEtiapine FUMARATE 100 MG TABLET (FP) PO SCH (22:02)
[2020-11-21] MEDS: ATORVASTATIN CA 40 MG TABLET (FP) PO SCH (22:02)
[2020-11-21] MEDS: traZODone HCL 50 MG TABLET (FP) PO SCH (22:02)
[2020-11-21] MEDS: levETIRAcetam 250 MG TABLET PO SCH (22:02)
[2020-11-22] MEDS: DORZOLAMIDE 2% HCL OPHTHALMIC SOLUTION 10 ML BOTTLE OS SCH ×3 (07:12→21:42)
[2020-11-22] MEDS: BRIMONIDINE TARTRATE 0.15% OPHTHALMIC 5 ML BOTTLE OS SCH ×3 (07:12→21:42)
[2020-11-22] MEDS: metFORMIN HCL 500 MG TABLET (FP) PO SCH ×2 (07:13→16:55)
[2020-11-22] MEDS: THIAMINE HCL 100 MG TABLET (FP) PO SCH (09:57)
[2020-11-22] MEDS: BUDESONIDE/FORMETEROL FUMARATE 80/4.5 mcg INHALER IH SCH ×2 (09:57→21:36)
[2020-11-22] MEDS: PRENATAL VITAMINS W/ FOLIC ACID TABLET (FP) PO SCH (09:57)
[2020-11-22] MEDS: DIVALPROEX SODIUM 500 MG TABLET E.C. PO SCH ×2 (09:57→21:36)
[2020-11-22] MEDS: levETIRAcetam 500 MG TABLET (FP) PO SCH (09:57)
[2020-11-22] MEDS: NICOTINE 21 MG/24 HOURS TOPICAL PATCH TD SCH (09:58)
[2020-11-22] MEDS: ASPIRIN COATED 81 MG TABLET.EC PO SCH (09:58)
[2020-11-22] MEDS: TIOTROPIUM BROMIDE 2.5 MCG (SPIRIVA) RESPIMAT INHALER IH SCH (09:58)
[2020-11-22] MEDS: NAPROXEN 500 MG TABLET PO PRN (09:59)
[2020-11-22] MEDS: hydrOXYzine PAMOATE 50 MG CAPSULE (FP) PO PRN ×2 (10:00→17:13)
[2020-11-22] MEDS ORDERED: PT OWN MED DRAWER 7, Y5N ONE (20:19)
[2020-11-22] MEDS: traZODone HCL 50 MG TABLET (FP) PO SCH (21:34)
[2020-11-22] MEDS: QUEtiapine FUMARATE 100 MG TABLET (FP) PO SCH (21:35)
[2020-11-22] MEDS: ATORVASTATIN CA 40 MG TABLET (FP) PO SCH (21:35)
[2020-11-22] MEDS: levETIRAcetam 250 MG TABLET PO SCH (21:39)
[2020-11-22] MEDS: LATANOPROST 0.005% OPHTH SOLN 2.5ML BOTTLE OS SCH (21:43)
[2020-11-23] MEDS: metFORMIN HCL 500 MG TABLET (FP) PO SCH ×2 (06:18→16:18)
[2020-11-23] MEDS: BRIMONIDINE TARTRATE 0.15% OPHTHALMIC 5 ML BOTTLE OS SCH ×3 (06:19→21:07)
[2020-11-23] MEDS: DORZOLAMIDE 2% HCL OPHTHALMIC SOLUTION 10 ML BOTTLE OS SCH ×3 (06:19→21:07)
[2020-11-23] MEDS: ASPIRIN COATED 81 MG TABLET.EC PO SCH (09:37)
[2020-11-23] MEDS: PRENATAL VITAMINS W/ FOLIC ACID TABLET (FP) PO SCH (09:37)
[2020-11-23] MEDS: levETIRAcetam 500 MG TABLET (FP) PO SCH (09:37)
[2020-11-23] MEDS: DIVALPROEX SODIUM 500 MG TABLET E.C. PO SCH ×2 (09:37→21:03)
[2020-11-23] MEDS: THIAMINE HCL 100 MG TABLET (FP) PO SCH (09:39)
[2020-11-23] MEDS: NICOTINE 21 MG/24 HOURS TOPICAL PATCH TD SCH (09:39)
[2020-11-23] MEDS: BUDESONIDE/FORMETEROL FUMARATE 80/4.5 mcg INHALER IH SCH ×2 (09:40→21:03)
[2020-11-23] MEDS: TIOTROPIUM BROMIDE 2.5 MCG (SPIRIVA) RESPIMAT INHALER IH SCH (09:40)
[2020-11-23] MEDS: hydrOXYzine PAMOATE 50 MG CAPSULE (FP) PO PRN (09:42)
[2020-11-23] MEDS: QUEtiapine FUMARATE 100 MG TABLET (FP) PO SCH (21:03)
[2020-11-23] MEDS: traZODone HCL 50 MG TABLET (FP) PO SCH (21:03)
[2020-11-23] MEDS: ATORVASTATIN CA 40 MG TABLET (FP) PO SCH (21:03)
[2020-11-23] MEDS: levETIRAcetam 250 MG TABLET PO SCH (21:05)
[2020-11-23] MEDS: LATANOPROST 0.005% OPHTH SOLN 2.5ML BOTTLE OS SCH (21:06)
[2020-11-24] MEDS: metFORMIN HCL 500 MG TABLET (FP) PO SCH ×2 (06:07→16:59)
[2020-11-24] MEDS: BRIMONIDINE TARTRATE 0.15% OPHTHALMIC 5 ML BOTTLE OS SCH ×3 (06:07→21:45)
[2020-11-24] MEDS: DORZOLAMIDE 2% HCL OPHTHALMIC SOLUTION 10 ML BOTTLE OS SCH ×3 (06:07→21:46)
[2020-11-24] MEDS ORDERED: PT OWN MED DRAWER 7, Y5N ONE (09:36)
[2020-11-24] MEDS: BUDESONIDE/FORMETEROL FUMARATE 80/4.5 mcg INHALER IH SCH ×2 (09:51→21:46)
[2020-11-24] MEDS: ASPIRIN COATED 81 MG TABLET.EC PO SCH (09:52)
[2020-11-24] MEDS: THIAMINE HCL 100 MG TABLET (FP) PO SCH (09:52)
[2020-11-24] MEDS: levETIRAcetam 500 MG TABLET (FP) PO SCH (09:52)
[2020-11-24] MEDS: DIVALPROEX SODIUM 500 MG TABLET E.C. PO SCH ×2 (09:52→21:45)
[2020-11-24] MEDS: NICOTINE 21 MG/24 HOURS TOPICAL PATCH TD SCH (09:53)
[2020-11-24] MEDS: PRENATAL VITAMINS W/ FOLIC ACID TABLET (FP) PO SCH (09:53)
[2020-11-24] MEDS: TIOTROPIUM BROMIDE 2.5 MCG (SPIRIVA) RESPIMAT INHALER IH SCH (09:54)
[2020-11-24] MEDS: NAPROXEN 500 MG TABLET PO PRN ×2 (09:56→21:48)
[2020-11-24] MEDS: levETIRAcetam 250 MG TABLET PO SCH (21:44)
[2020-11-24] MEDS: ATORVASTATIN CA 40 MG TABLET (FP) PO SCH (21:45)
[2020-11-24] MEDS: QUEtiapine FUMARATE 100 MG TABLET (FP) PO SCH (21:45)
[2020-11-24] MEDS: traZODone HCL 50 MG TABLET (FP) PO SCH (21:45)
[2020-11-24] MEDS: LATANOPROST 0.005% OPHTH SOLN 2.5ML BOTTLE OS SCH (21:46)
[2020-11-25] MEDS: metFORMIN HCL 500 MG TABLET (FP) PO SCH ×2 (06:58→17:14)
[2020-11-25] MEDS: BRIMONIDINE TARTRATE 0.15% OPHTHALMIC 5 ML BOTTLE OS SCH ×3 (06:58→21:04)
[2020-11-25] MEDS: DORZOLAMIDE 2% HCL OPHTHALMIC SOLUTION 10 ML BOTTLE OS SCH ×3 (06:58→21:04)
[2020-11-25] MEDS: ASPIRIN COATED 81 MG TABLET.EC PO SCH (09:42)
[2020-11-25] MEDS: levETIRAcetam 500 MG TABLET (FP) PO SCH (09:42)
[2020-11-25] MEDS: DIVALPROEX SODIUM 500 MG TABLET E.C. PO SCH ×2 (09:42→21:09)
[2020-11-25] MEDS: THIAMINE HCL 100 MG TABLET (FP) PO SCH (09:42)
[2020-11-25] MEDS: PRENATAL VITAMINS W/ FOLIC ACID TABLET (FP) PO SCH (09:44)
[2020-11-25] MEDS: NICOTINE 21 MG/24 HOURS TOPICAL PATCH TD SCH (09:44)
[2020-11-25] MEDS: BUDESONIDE/FORMETEROL FUMARATE 80/4.5 mcg INHALER IH SCH ×2 (09:45→21:08)
[2020-11-25] MEDS: TIOTROPIUM BROMIDE 2.5 MCG (SPIRIVA) RESPIMAT INHALER IH SCH (09:45)
[2020-11-25] MEDS ORDERED: PT OWN MED DRAWER 7, Y5N ONE (20:10)
[2020-11-25] MEDS: LATANOPROST 0.005% OPHTH SOLN 2.5ML BOTTLE OS SCH (21:03)
[2020-11-25] MEDS: ATORVASTATIN CA 40 MG TABLET (FP) PO SCH (21:09)
[2020-11-25] MEDS: traZODone HCL 50 MG TABLET (FP) PO SCH (21:09)
[2020-11-25] MEDS: QUEtiapine FUMARATE 100 MG TABLET (FP) PO SCH (21:09)
[2020-11-25] MEDS: levETIRAcetam 250 MG TABLET PO SCH (21:10)
[2020-11-25] MEDS: NAPROXEN 500 MG TABLET PO PRN (21:10)
[2020-11-25] MEDS: hydrOXYzine PAMOATE 50 MG CAPSULE (FP) PO PRN (21:11)
[2020-11-26] MEDS: BRIMONIDINE TARTRATE 0.15% OPHTHALMIC 5 ML BOTTLE OS SCH (06:44)
[2020-11-26] MEDS: DORZOLAMIDE 2% HCL OPHTHALMIC SOLUTION 10 ML BOTTLE OS SCH (06:44)
[2020-11-26] MEDS: metFORMIN HCL 500 MG TABLET (FP) PO SCH (06:45)
[2020-11-26 07:10] VITALS: BP 104/66; PULSE 82; TEMP 97.4
[2020-11-26] MEDS: BUDESONIDE/FORMETEROL FUMARATE 80/4.5 mcg INHALER IH SCH (09:35)
[2020-11-26] MEDS: TIOTROPIUM BROMIDE 2.5 MCG (SPIRIVA) RESPIMAT INHALER IH SCH (09:35)
[2020-11-26] MEDS: THIAMINE HCL 100 MG TABLET (FP) PO SCH (09:36)
[2020-11-26] MEDS: PRENATAL VITAMINS W/ FOLIC ACID TABLET (FP) PO SCH (09:36)
[2020-11-26] MEDS: NAPROXEN 500 MG TABLET PO PRN (09:36)
[2020-11-26] MEDS: NICOTINE 21 MG/24 HOURS TOPICAL PATCH TD SCH (09:36)
[2020-11-26] MEDS: DIVALPROEX SODIUM 500 MG TABLET E.C. PO SCH (09:36)
[2020-11-26] MEDS: levETIRAcetam 500 MG TABLET (FP) PO SCH (09:36)
[2020-11-26] MEDS: ASPIRIN COATED 81 MG TABLET.EC PO SCH (09:36)
[2020-11-26] MEDS: hydrOXYzine PAMOATE 50 MG CAPSULE (FP) PO PRN (09:37)
== END 2020-11-26 10:10 | disposition home or self-care (01) | DRG 772 ==
LOC: YASAS 17:22 → Y5N 18:47
PROVIDERS: ADMIT Allergy & Immunology; ATTEND Allergy & Immunology
PROC: HZ42ZZZ Group Counseling for Substance Abuse Treatment, Cognitive-Behavioral (ICD-10-PCS; principal; 2020-11-12)
DX: F10.20 Alcohol dependence, uncomplicated (principal); F14.20 Cocaine dependence, uncomplicated; F12.20 Cannabis dependence, uncomplicated; F17.210 Nicotine dependence, cigarettes, uncomplicated; F19.282 Other psychoactive substance dependence with psychoactive substance-induced sleep disorder; F19.24 Other psychoactive substance dependence with psychoactive substance-induced mood disorder; F25.0 Schizoaffective disorder, bipolar type; G40.909 Epilepsy, unspecified, not intractable, without status epilepticus; J44.9 Chronic obstructive pulmonary disease, unspecified; E11.9 Type 2 diabetes mellitus without complications; Z79.84 Long term (current) use of oral hypoglycemic drugs; M54.5 Low back pain; G89.29 Other chronic pain; E78.5 Hyperlipidemia, unspecified; S05.6 Penetrating wound without foreign body of eyeball; X99.8XXD Assault by other sharp object, subsequent encounter; I25.2 Old myocardial infarction; Z87.01 Personal history of pneumonia (recurrent); Z86.79 Personal history of other diseases of the circulatory system
CPT/HCPCS: 82962; 94640; C9803; U0003; U0005

== ENCOUNTER 2020-11-16 17:17 | Emergency (ER) | payer OTHER ==
[2020-11-16 17:51] VITALS: BMI 28.3
[2020-11-16] MEDS ORDERED: ALBUTEROL SO4 2.5/IPRATROPIUM 0.5 INH SOL 3 ML VIAL.NEB. NEB ONE (19:20)
[2020-11-16] MEDS ORDERED: IBUPROFEN 400 MG TABLET (FP) PO ONE ×2 (19:56→20:00)
[2020-11-16 19:58] LABS: BASO % 0.9 % (0-2.0); EOS % 1.1 % (0-4.5); HEMATOCRIT 34.9 % (32.4-45.2); HEMOGLOBIN 11.7 GM/dL (10.7-15.3); LYMPH % 33.7 % (8-40); MCH 28.9 pg (25.7-33.7); MCHC 33.5 g/dl (32.0-36.0); MEAN CELL VOLUME 86.4 fl (80-96); MEAN PLT VOLUME 7.1 fl (7.5-11.1); MONO % 5.4 % (3.8-10.2); NEUT % 58.9 % (42.8-82.8); PLATELET COUNT 351 10^3/uL (134-434); RBC 4.05 M/mm3 (3.60-5.2); WHITE BLOOD COUNT 20.9 K/mm3 (4.0-10.0)
[2020-11-16] MEDS ORDERED: levETIRAcetam 500 MG TABLET (FP) PO ONE ×2 (20:02→20:20)
[2020-11-16 20:17] LABS: CALCIUM 9.4 mg/dL (8.5-10.1)
[2020-11-16 20:18] LABS: ALBUMIN 3.3 g/dl (3.4-5.0); BLOOD UREA NITROGEN 24.2 mg/dL (7-18)
[2020-11-16 20:21] LABS: CREATININE 0.7 mg/dL (0.55-1.3)
[2020-11-16 20:22] LABS: BILIRUBIN,TOTAL 0.2 mg/dL (0.2-1); TOT PROT 6.6 g/dl (6.4-8.2)
[2020-11-16] MEDS ORDERED: DIVALPROEX SODIUM 500 MG TABLET E.C. PO ONE (20:25)
[2020-11-16] MEDS ORDERED: DIVALPROEX SODIUM 500 MG TABLET E.C. ONE (20:30)
[2020-11-16 21:07] LABS: ANISOCYTOSIS 1+; MACROCYTOSIS 1+; PLATELET ESTIMATE NORMAL; TARGET CELLS 1+
[2020-11-16 21:14] LABS: PH,URINE 6.5 (5.0-8.0); URINE APPEARANCE CLEAR; URINE BILIRUBIN NEGATIVE (NEGATIVE); URINE COLOR YELLOW; URINE GLUCOSE (UA) NEGATIVE (NEGATIVE); URINE KETONE NEGATIVE (NEGATIVE); URINE LEUK ESTERASE TRACE (NEGATIVE); URINE NITRITE NEGATIVE (NEGATIVE); URINE PROTEIN NEGATIVE (NEGATIVE); URINE UROBILINOGEN 0.2 mg/dL (0.2-1.0)
[2020-11-16 23:12] LABS: EPI CELLS 8.6 /uL (0-25.1); URINE BACTERIA 44.6 /uL (0-1359); URINE RBC 9.3 /uL (0-23.9); URINE WBC 4.4 /uL (0-25.8)
[2020-11-17 01:10] VITALS: BP 142/86; PULSE 73; TEMP 98.3
== END 2020-11-17 01:11 | disposition home or self-care (01) ==
LOC: JER 17:17
PROC: 3E0F7GC Introduction of Other Therapeutic Substance into Respiratory Tract, Via Natural or Artificial Opening (ICD-10-PCS; principal; 2020-11-16)
DX: R56.9 Unspecified convulsions (principal)
CPT/HCPCS: 36415; 80053; 81003; 85025; 87086; 87186; 99284-25

== ENCOUNTER 2024-06-30 11:57 | Inpatient (IN) | payer OTHER ==
[2024-06-30 12:40] VITALS: BMI 25.8
[2024-06-30] MEDS ORDERED: NALOXONE (NARCAN) HCL 4 MG/0.1 ML SPRAY NS PRN (12:45)
[2024-06-30] MEDS ORDERED: ACETAMINOPHEN 325 MG TABLET (FP) PO PRN (12:45)
[2024-06-30] MEDS ORDERED: guaiFENesin 600 MG TABLET.ER (FP) PO PRN (12:45)
[2024-06-30] MEDS ORDERED: BISMUTH SUBSALICYLATE 524 MG/30 ML PO PRN (12:45)
[2024-06-30] MEDS ORDERED: LOPERAMIDE HCL 2 MG CAPSULE PO PRN (12:45)
[2024-06-30] MEDS ORDERED: DICYCLOMINE HCL 10 MG CAPSULE PO PRN (12:45)
[2024-06-30] MEDS ORDERED: POLYETHYLENE GLYCOL (HEALTHYLAX) 3350 17 GM PACKET PO PRN (12:45)
[2024-06-30] MEDS ORDERED: ONDANSETRON *ODT* 4 MG TABLET SL PRN (12:45)
[2024-06-30] MEDS ORDERED: MAGNESIUM HYDROX 2400MG/30ML ORAL SUSPENSION 30 ML CUP PO PRN (12:45)
[2024-06-30] MEDS ORDERED: IBUPROFEN 600 MG TABLET (FP) PO PRN (12:45)
[2024-06-30] MEDS ORDERED: BENZOCAINE/MENTHOL (CHLORASEPTIC ) LOZENGE MM PRN (12:45)
[2024-06-30] MEDS ORDERED: IBUPROFEN 400 MG TABLET (FP) PO PRN (12:45)
[2024-06-30] MEDS ORDERED: BENZONATATE 200 MG CAPSULE PO PRN (12:45)
[2024-06-30] MEDS ORDERED: MAG HYDROX/AL HYDROX/SIMETH 30 ML UNIT-DOSE CUP PO PRN (12:45)
[2024-06-30] MEDS ORDERED: ALBUTEROL SO4 HFA INHALER IH PRN (12:47)
[2024-06-30] MEDS ORDERED: NICOTINE POLACRILEX 2 MG GUM ONE (14:46)
[2024-06-30] MEDS ORDERED: NICOTINE 21 MG/24 HOURS TOPICAL PATCH ONE (14:46)
[2024-06-30] MEDS ORDERED: PRENATAL VITAMINS W/ FOLIC ACID TABLET (FP) PO ONE (14:47)
[2024-06-30] MEDS: PRENATAL VITAMINS W/ FOLIC ACID TABLET (FP) PO SCH (14:49)
[2024-06-30] MEDS: NICOTINE 21 MG/24 HOURS TOPICAL PATCH TD SCH (14:49)
[2024-06-30] MEDS: NICOTINE POLACRILEX 2 MG GUM BUC PRN (14:50)
[2024-06-30] MEDS: chlordiazePOXIDE HCL 25 MG CAPSULE PO PRN (15:58)
[2024-06-30] MEDS: LIDOCAINE 5% TOPICAL PATCH TP SCH (16:03)
[2024-06-30] MEDS: chlordiazePOXIDE HCL 25 MG CAPSULE PO SCH (17:59)
[2024-06-30] MEDS: METHOCARBAMOL 500 MG TABLET PO PRN (22:21)
[2024-06-30] MEDS: THIAMINE 100 MG TABLET PO SCH (22:21)
[2024-06-30] MEDS: MELATONIN 5 MG TABLETS PO SCH (22:21)
[2024-06-30] MEDS: ATORVASTATIN CA 40 MG TABLET (FP) PO SCH (22:22)
[2024-06-30] MEDS: DIVALPROEX SODIUM 500 MG TABLET E.C. PO SCH (22:22)
[2024-06-30] MEDS: levETIRAcetam 500 MG TABLET (FP) PO SCH ×2 (22:22→22:23)
[2024-06-30] MEDS: LIDOCAINE PATCH REMOVAL MC SCH (22:23)
[2024-06-30] MEDS: BUDESONIDE/FORMETEROL FUMARATE 80/4.5 mcg INHALER IH SCH (22:24)
[2024-07-01] MEDS: NALTREXONE HCL 50 MG TABLET PO ONE (00:06)
[2024-07-01] MEDS: NALTREXONE HCL 50 MG TABLET PO SCH (10:39)
[2024-07-01 10:49] LABS: POTASSIUM 4.1 mmol/L (3.5-5.1)
[2024-07-01 10:50] LABS: HEMATOCRIT 34.9 % (34.1-44.9); HEMOGLOBIN 11.2 g/dL (11.2-15.7); MCHC 32.1 g/dl (32.2-35.5); MEAN CELL VOLUME 88.4 fl (79.4-94.8); MEAN PLT VOLUME 10.4 fl (9.4-12.3); PLATELET COUNT 244 x10^3/uL (182-369); RDW 14.6 % (12.3-16.6)
[2024-07-01] MEDS: TIOTROPIUM BROMIDE 2.5 MCG (SPIRIVA) RESPIMAT INHALER IH SCH (10:55)
[2024-07-01 11:13] LABS: CALCIUM 9.7 mg/dL (8.5-10.1)
[2024-07-01 11:14] LABS: BLOOD UREA NITROGEN 19.4 mg/dL (7-18)
[2024-07-01 11:17] LABS: CREATININE 0.5 mg/dL (0.55-1.3)
[2024-07-01 11:19] LABS: BILIRUBIN,TOTAL 0.3 mg/dL (0.2-1); TOT PROT 5.8 g/dl (6.4-8.2)
[2024-07-01] MEDS: PNEUMOC 20-VAL CONJ-DIP CRM/PF 0.5 ML SYRINGE IM ONE (11:53)
[2024-07-01] MEDS: hydrOXYzine PAMOATE 25 MG CAPSULE (FP) PO PRN (11:57)
[2024-07-01] MEDS: PARoxetine HCL 20 MG TABLET PO SCH (12:20)
[2024-07-01] MEDS: PRAZOSIN HCL 1 MG CAPSULE PO SCH (22:19)
[2024-07-01] MEDS: QUEtiapine FUMARATE 100 MG TABLET (FP) PO SCH (22:19)
[2024-07-02] MEDS: chlordiazePOXIDE HCL 25 MG CAPSULE PO SCH (05:45)
[2024-07-03] MEDS ORDERED: chlordiazePOXIDE HCL 10 MG CAPSULE PO PRN
[2024-07-03] MEDS: chlordiazePOXIDE HCL 10 MG CAPSULE PO SCH (05:00)
[2024-07-03 11:50] LABS: ABSOLUTE IMMATURE GRANULOCYTES 0.08 x10^3/uL (0.0-0.031); BASOPHILS # 0.04 x10^3/uL (0.01-0.08); EOSINOPHIL % 3.1 % (0.7-5.8); EOSINOPHILS # 0.35 x10^3/uL (0.04-0.36); HEMATOCRIT 36.2 % (34.1-44.9); HEMOGLOBIN 11.5 g/dL (11.2-15.7); MCHC 31.8 g/dl (32.2-35.5); MEAN CELL VOLUME 89.4 fl (79.4-94.8); MEAN PLT VOLUME 10.2 fl (9.4-12.3); MONOCYTE # 0.69 x10^3/uL (0.24-0.86); PLATELET COUNT 240 x10^3/uL (182-369); POTASSIUM 4.1 mmol/L (3.5-5.1)
[2024-07-03 11:54] LABS: BLOOD UREA NITROGEN 11.8 mg/dL (7-18); CALCIUM 10.1 mg/dL (8.5-10.1)
[2024-07-03 11:58] LABS: CREATININE 0.5 mg/dL (0.55-1.3)
[2024-07-04] MEDS: chlordiazePOXIDE HCL 10 MG CAPSULE PO SCH (05:49)
[2024-07-04] MEDS: NAPROXEN 500 MG TABLET PO SCH (09:52)
[2024-07-04] MEDS: predniSONE 20 MG TABLET (UD) PO SCH (11:34)
[2024-07-05] MEDS: chlordiazePOXIDE HCL 10 MG CAPSULE PO ONE (05:30)
[2024-07-05 06:35] VITALS: TEMP 97.3
[2024-07-05 09:25] VITALS: BP 111/79; PULSE 76; RESP 18
== END 2024-07-05 09:50 | disposition home or self-care (01) | DRG 774 ==
LOC: YASAS 11:57 → Y6N 14:58
PROVIDERS: ADMIT Allergy & Immunology; ATTEND Allergy & Immunology
PROC: HZ2ZZZZ Detoxification Services for Substance Abuse Treatment (ICD-10-PCS; principal; 2024-06-30)
DX: F10.230 Alcohol dependence with withdrawal, uncomplicated (principal); F14.20 Cocaine dependence, uncomplicated; F12.20 Cannabis dependence, uncomplicated; F17.210 Nicotine dependence, cigarettes, uncomplicated; F31.9 Bipolar disorder, unspecified; F25.0 Schizoaffective disorder, bipolar type; F19.282 Other psychoactive substance dependence with psychoactive substance-induced sleep disorder; F19.280 Other psychoactive substance dependence with psychoactive substance-induced anxiety disorder; F19.24 Other psychoactive substance dependence with psychoactive substance-induced mood disorder; G40.909 Epilepsy, unspecified, not intractable, without status epilepticus; I10 Essential (primary) hypertension; J44.9 Chronic obstructive pulmonary disease, unspecified; E11.9 Type 2 diabetes mellitus without complications; R55 Syncope and collapse; Z59.02 Unsheltered homelessness
CPT/HCPCS: 36415; 80048; 80053; 80305; 80307; 82962; 83036; 84075; 85025; 85027; 86780; 90677; 93005; 93010